=== PATIENT | female | born 1990 | race Caucasian/White ===

== ENCOUNTER → 2025-03-06 | Outpatient (CLI) | payer BC, SELFPAY ==
[2025-03-06 18:02] LABS: Hematocrit 35.1 % (37-47); Hemoglobin 12.1 g/dL (12.0-15.0); Mean Corp Hgb Conc 34.5 g/dL (32-36); Mean Corpuscular Volume 85.2 fL (81-99); Mean Platelet Vol. 9.9 fl (6.2-12.0); Platelet Count 248 K/mm3 (150-450); RBC Distribution Width CV 13.1 % (11.6-14.6); RBC Distribution Width SD 40.6 fl (35.1-43.9); Red Blood Count 4.12 M/mm3 (4.2-5.4); White Blood Count 5.0 K/mm3 (4.4-11.0)
[2025-03-06 18:20] LABS: AST(SGOT) 19 U/L (<=31); Alanine Aminotransfer ALT/SGPT 6 U/L (<=34); Albumin, Serum 4.3 g/dL (3.5-5.0); Alkaline Phosphatase 60 U/L (35-104); Anion Gap 11 (5-15); BUN 22 mg/dL (4-19); BUN/Creat Ratio 32.3 RATIO (10-20); Calcium,Total 9.2 mg/dL (7.6-11.0); Carbon Dioxide 23.0 mmol/L (21.0-32.0); Chloride 106 mmol/L (98-108); Cholesterol 238 mg/dL (<=200); Globulin 2.4 g/dL (2.2-4.2); Glucose 95 mg/dL (70-99); Low Density Lipoprotein Calc. 140 mg/dL; Potassium 3.7 mmol/L (3.3-5.1); Triglycerides 56 mg/dL; Very Low Density Lipoprotein 11 mg/dL (5-40); Vitamin D,25 Hydroxy 101.0 ng/mL (30-100); cholesterol:hdl ratio screen 2.69
[2025-03-11 19:08] LABS: Bluegrass, Kentucky 1.64 kU/L (Class III); Cat Hair/Dander, Standard 9.55 kU/L (Class IV); Cedar, Mountain <0.10 kU/L (Class 0); Cockroach, American <0.10 kU/L (Class 0); Dog Epithelia 0.38 kU/L (Class I); Egg, Whole 0.43 kU/L (Class I); Elm, American White <0.10 kU/L (Class 0); Hazelnut Tree <0.10 kU/L (Class 0); Hickory, White <0.10 kU/L (Class 0); Mulberry, White <0.10 kU/L (Class 0); Mussels <0.10 kU/L (Class 0); Oak, White <0.10 kU/L (Class 0); Pigweed, Rough <0.10 kU/L (Class 0); Plantain, English <0.10 kU/L (Class 0); Ragweed, Short/Common 0.42 kU/L (Class I); Sheep Sorrel(Dock) <0.10 kU/L (Class 0); Sycamore, American <0.10 kU/L (Class 0)
== END | disposition home or self-care (01) ==
LOC: MFPLAB 15:12
PROVIDERS: Visit Provider Family Medicine
DX: T78.40XA Allergy, unspecified, initial encounter (principal); R53.83 Other fatigue; Z13.1 Encounter for screening for diabetes mellitus; Z13.220 Encounter for screening for lipoid disorders
CPT/HCPCS: 36415; 80053; 80061; 82306; 84443; 85027; 86003; 86005